=== PATIENT | male | born 1975 | race African-American/Black ===

== ENCOUNTER 2019-01-25 14:23 | Emergency (ER) | payer MEDICAID ==
[~2019-01-25] VITALS: Ht 162.6 cm; Wt 64.0 kg
[2019-01-25] MEDS ORDERED: HYDROCODONE/ACETAMINOPHEN 5/325MG TABLET PO STA (16:21)
[2019-01-25] MEDS ORDERED: BALANCED SALT IRRIG SOLN 15ML IR ONE (18:00)
[2019-01-25] MEDS ORDERED: SULFACETAMIDE SODIUM 10% OPHTH DROPS 15ML LEFTEYE ONE (18:00)
[2019-01-25] MEDS ORDERED: TETRACAINE 0.5% OPHTH DROPS 4ML LEFTEYE ONE (18:00)
[2019-01-25] MEDS ORDERED: FLUORESCEIN SODIUM 1MG/STRIP RIGHTEYE ONE (19:30)
[2019-01-25] MEDS ORDERED: AMOXICILLIN/POTASSIUM CLAVULANATE 875/125MG TAB PO ONE (19:45)
[2019-01-25 20:23] VITALS: BP 128/82
== END 2019-01-25 20:25 | disposition home or self-care (01) ==
LOC: ER 14:23
DX: S00.83XA Contusion of other part of head, initial encounter (principal); Y08.89XA Assault by other specified means, initial encounter; Y93.89 Activity, other specified; Y92.89 Other specified places as the place of occurrence of the external cause; Y99.8 Other external cause status
CPT/HCPCS: 70486; 99284